=== PATIENT | male | born 1940 | race Two or more races ===

== ENCOUNTER 2019-03-08 15:14 | Outpatient (CLI) | payer OTHER | END 2019-03-08 15:15 | disposition home or self-care (01) | LOC: RAD 15:14 | DX: I50.31 Acute diastolic (congestive) heart failure (principal) ==

== ENCOUNTER 2020-01-20 10:07 | Inpatient (IN) | payer OTHER ==
[~2020-01-20] VITALS: Ht 172.7 cm; Wt 63.5 kg
[2020-01-20] MEDS ORDERED: FORTAMET500 MG PO (10:12)
[2020-01-20] MEDS ORDERED: BRILINTA90 MG PO (10:12)
[2020-01-20] MEDS ORDERED: CARVEDILOL ER40 MG (10:13)
[2020-01-20] MEDS ORDERED: BACLOFEN5 MG PO (10:13)
[2020-01-20] MEDS ORDERED: AMLODIPINE-OLM1 EAC3 (10:14)
[2020-01-20] MEDS ORDERED: ESCITALOPRA5 MG/5 ML (10:14)
[2020-01-20] MEDS ORDERED: ALTACE5 MG PO (10:14)
[2020-01-20] MEDS ORDERED: ATORVASTATIN CA40 MG PO (10:14)
[2020-01-25] MEDS ORDERED: HYOSCYAMINE0.125 M1 SL (07:56)
[2020-01-25] MEDS ORDERED: BACLOFEN10 MG PO (07:56)
[2020-01-25] MEDS ORDERED: CARVEDILOL25 MG PO (07:57)
[2020-01-25] MEDS ORDERED: BRILINTA90 MG PO (07:57)
[2020-01-25] MEDS ORDERED: RAMIPRIL5 MG PO (07:57)
[2020-01-25] MEDS ORDERED: XOPENEX0.63 MG/3 IH (07:57)
[2020-01-25] MEDS ORDERED: LEXAPRO20 MG PO (07:59)
[2020-01-25] MEDS ORDERED: PROTONIX40 MG PO (07:59)
== END 2020-01-25 15:06 | disposition home health service (06) | DRG 378 ==
LOC: ER 10:07 → MEDI 01-21 08:03
PROVIDERS: ADMIT Internal Medicine; ATTEND Internal Medicine
PROC: 3E0F7GC Introduction of Other Therapeutic Substance into Respiratory Tract, Via Natural or Artificial Opening (ICD-10-PCS; principal; 2020-01-24)
DX: K92.1 Melena (principal); D62 Acute posthemorrhagic anemia; K56.600 Partial intestinal obstruction, unspecified as to cause; E86.0 Dehydration; E11.9 Type 2 diabetes mellitus without complications; K44.9 Diaphragmatic hernia without obstruction or gangrene; Z20.828 Contact with and (suspected) exposure to other viral communicable diseases; Z79.4 Long term (current) use of insulin; Z86.73 Personal history of transient ischemic attack (TIA), and cerebral infarction without residual deficits